=== PATIENT | male | born 2000 | race Caucasian/White ===

== ENCOUNTER 2023-11-14 13:07 | Emergency (ER) | payer BC, MEDICAID ==
[~2023-11-14] VITALS: Ht 177.8 cm; Wt 81.8 kg
[2023-11-14] MEDS ORDERED: Ketorolac 30 MG/ML VIAL IV ONE (14:30)
[2023-11-14] MEDS ORDERED: NS 1,000 ML IV ONE ×2 (14:30→16:45)
[2023-11-14] MEDS ORDERED: ceFAZolin 1 G in Water For Injection,Sterile 10 ML IV SCH (14:30)
[2023-11-14 15:03] LABS: CALCIUM 9.8 mg/dL (8.4-10.2); CREATININE, serum 1.01 mg/dL (0.72-1.25); POTASSIUM 4.1 mmol/L (3.5-4.5); TOTAL PROTEIN 7.7 gm/dL (6.2-8.1)
[2023-11-14 15:10] LABS: BASO % 0.2 % (0.0-2.0); GRAN # 8.8 K/mm3 (1.4-6.5); HEMATOCRIT 50.7 % (42.0-52.0); HEMOGLOBIN 17.6 g/dl (13.5-18.0); LYMPH # 0.6 K/mm3 (1.2-3.4); MEAN CELL VOLUME 90 fl (80.0-100.0); MEAN CORPUSCULAR HEMOGLOBIN 31 pg (27-31); MEAN CORPUSCULAR HGB CONC 35 g/dl (33.0-37.0); MEAN PLATELET VOLUME 11.2 fl (7.4-10.4); MONO % 9.6 % (1.7-9.3); PLATELET COUNT 197 K/mm3 (130-400); RED BLOOD COUNT 5.62 M/mm3 (4.20-5.60); REDCELL DISTRIBUTION WIDTH-CV 11.9 % (11.5-14.5)
[2023-11-14 16:00] VITALS: TEMP 100
[2023-11-14] MEDS ORDERED: ZOFRAN ODT4 MG PO (17:06)
[2023-11-14 17:15] VITALS: BP 117/49; PULSE 97
== END 2023-11-14 17:22 | disposition home or self-care (01) ==
LOC: COL.ER 13:07
PROVIDERS: Internal Medicine
DX: K29.00 Acute gastritis without bleeding (principal); E86.0 Dehydration; B34.9 Viral infection, unspecified; R09.89 Other specified symptoms and signs involving the circulatory and respiratory systems; F17.210 Nicotine dependence, cigarettes, uncomplicated
CPT/HCPCS: J0690; J1885; J2765; J7030